=== PATIENT | male | born 1995 | race Caucasian/White ===

== ENCOUNTER 2020-03-30 14:29 | Emergency (ER) | payer OTHER ==
[~2020-03-30] VITALS: Ht 177.8 cm; Wt 79.5 kg
[2020-03-30 14:37] VITALS: TEMP 98.9
[2020-03-30 15:49] VITALS: BP 117/74; PULSE 62
== END 2020-03-30 15:47 | disposition home or self-care (01) ==
LOC: COL.ER 14:29
DX: G89.18 Other acute postprocedural pain (principal)
CPT/HCPCS: J1170; J2405

== ENCOUNTER → 2020-09-03 | Outpatient (CLI) | payer OTHER | LOC: COL.RAD 14:19 | DX: M25.522 Pain in left elbow (principal) ==